=== PATIENT | male | born 1960 | race Caucasian/White ===

== ENCOUNTER 2023-09-28 10:12 | Day surgery (SDC) | payer MEDICARE ==
[2023-09-26 14:49] VITALS: BMI 25.7
[~2023-09-28 10:12] MED LIST: LACTATED RINGERS 1,000 ML IV SCH
[2023-09-28 11:02] VITALS: TEMP 97.4
[2023-09-28] MEDS ORDERED: PROPOFOL 10 MG/ML 20 ML VIAL IV ONE (11:17)
[2023-09-28] MEDS ORDERED: LIDOCAINE 1% INJ 10MG/ML (20 ML MDV) ONE (11:17)
--- NOTE | 2023-09-28 11:32 | P.PCN ---
Date of Procedure: 09/28/23 Procedure(s) Performed: BRIEF HISTORY: Patient is a 63-year-old pleasant white male scheduled for an elective colonoscopy as a part of screening for colon cancer. Her last coloscopy was 10 years ago. PROCEDURE PERFORMED: Colonoscopy with snare polypectomy. PREOPERATIVE DIAGNOSIS: Screening for colon cancer. IV sedation per Anesthesia. PROCEDURE: After informed consent was obtained, the patient, was brought into the endoscopy unit. IV sedation was administered by Anesthesia under continuous monitoring. Digital rectal examination was normal. Initially the Olympus CF-160 flexible video colonoscope was then inserted in the rectum, gradually advanced into the cecum without any difficulty. Careful examination was performed as the scope was gradually being withdrawn. Ileocecal valve and the appendiceal orifice were visualized and appeared normal. Prep was excellent. Mucosa of the cecum, ascending colon, transverse colon, appeared normal. Scattered right-sided diverticulosis seen. In the descending colon there was a 7 mm polyp that was removed by snare polypectomy. In the sigmoid: There was a 4 mm polyp removed by snare polypectomy. Rest of the descending colon, sigmoid colon, and rectum appeared normal. Retroflexion was performed in the rectum and no lesions were seen. The patient tolerated the procedure well. IMPRESSION: 7 mm descending colon polyp status post polypectomy 4 mm; sigmoid polyp status post cold snare polypectomy Scattered right-sided diverticulosis RECOMMENDATIONS: Findings of this examination were discussed with the patient as well as his family. He was advised to follow with the biopsy results. If the biopsy result he can have a repeat colonoscopy in 5 years.
[2023-09-28 11:56] VITALS: PULSE 65; RESP 16
[2023-09-28 12:26] VITALS: BP 179/100
== END 2023-09-28 12:23 | disposition home or self-care (01) ==
LOC: ORWHC2ENDO 10:12
PROVIDERS: ATTEND Internal Medicine Gastroenterology
DX: Z12.11 Encounter for screening for malignant neoplasm of colon (principal); D12.5 Benign neoplasm of sigmoid colon; K57.30 Diverticulosis of large intestine without perforation or abscess without bleeding; I10 Essential (primary) hypertension; E78.5 Hyperlipidemia, unspecified; I25.10 Atherosclerotic heart disease of native coronary artery without angina pectoris; G47.33 Obstructive sleep apnea (adult) (pediatric); K21.9 Gastro-esophageal reflux disease without esophagitis; Z79.899 Other long term (current) drug therapy
CPT/HCPCS: 88305; 45385; J2001; J2704